=== PATIENT | male | born 1985 | race African-American/Black ===

== ENCOUNTER 2020-07-14 12:42 | Inpatient (IN) | payer OTHER, BC ==
[~2020-07-14] VITALS: Ht 172.7 cm; Wt 96.2 kg
[2020-07-14] MEDS ORDERED: IV NORMAL SALINE 1000ML BAG 1,000 ML IV ONE ×3 (13:00→14:45)
[2020-07-14 13:30] LABS: BASO % 1 % (0-3); EOS % 0 % (0-3); HEMATOCRIT 43.9 % (39.0-53.0); HEMOGLOBIN 15.2 g/dL (13.0-17.5); LYMPH # 1.6 x10^3/uL (1.0-4.8); LYMPH % 28 % (24-48); MEAN CORPUSCULAR HEMOGLOBIN 32 pg (25-35); MEAN CORPUSCULAR HGB CONC 35 g/dL (31-37); MEAN CORPUSCULAR VOLUME 91 fL (79-100); MONO # 0.5 x10^3/uL (0.0-1.1); MONO % 9 % (0-9); NEUT # 3.5 x10^3/uL (1.8-7.7); NEUT % 63 % (31-73); PLATELET COUNT 257 x10^3/uL (140-400); RED BLOOD COUNT 4.81 x10^6/uL (4.30-5.70); RED CELL DISTRIBUTION WIDTH 13.3 % (11.5-14.5); WHITE BLOOD COUNT 5.6 x10^3/uL (4.0-11.0)
[2020-07-14 13:39] LABS: CALCIUM 9.2 mg/dL (8.5-10.1); CREATININE 1.5 mg/dL (0.7-1.3); GFR 63.7; POTASSIUM 3.6 mmol/L (3.5-5.1)
[2020-07-14 13:42] LABS: BILIRUBIN,URINE SMALL (NEG); CLARITY,URINE CLEAR; NITRITE,URINE NEGATIVE (NEG); PH,URINE 5.5 (<5.0-8.0); PROTEIN,URINE 100 mg/dL (NEG-TRACE); UROBILINOGEN,URINE 0.2 mg/dL (0.2 mg/dL)
[2020-07-14 13:44] LABS: ALBUMIN 4.3 g/dL (3.4-5.0); ALBUMIN/GLOBULIN RATIO 0.9 (1.0-1.7); MAGNESIUM 2.3 mg/dL (1.8-2.4); TOTAL BILIRUBIN 0.6 mg/dL (0.2-1.0); TOTAL PROTEIN 9.3 g/dL (6.4-8.2)
[2020-07-14 13:46] LABS: AMPHETAMINE/METHAMPHETAMINE POS (NEG); BARBITURATES NEG (NEG); BENZODIAZEPINES NEG (NEG); CANNABINOIDS POS (NEG); COCAINE NEG (NEG); METHADONE NEG (NEG); OPIATES NEG (NEG); PHENCYCLIDINE NEG (NEG)
[2020-07-14 13:53] LABS: COLOR,URINE DK YELLOW
[2020-07-14 13:54] LABS: HYALINE CASTS, URINE FEW /HPF
[2020-07-14 13:55] LABS: BACTERIA,URINE 0 /HPF (0-FEW); RBC,URINE RARE /HPF (0-2); WBC,URINE RARE /HPF (0-4)
[2020-07-14 14:28] LABS: ACETAMIN < 2 mcg/ml (10-30); SALIC < 2.8 mg/dL (2.8-20.0)
--- NOTE | 2020-07-14 14:36 | PHYS DOC ---
Past Medical History Past Medical History: High Cholesterol, Other Additional Past Medical Histor: ADHD Past Surgical History: Other Additional Past Surgical Histo: poor historian Smoking Status: Unknown if ever smoked Alcohol Use: None Social History Narrative: poor historian General Adult EDM: Chief Complaint: DRUG ABUSE HPI: HPI: Patient is a 35 year old [f__sex] who presents with [] Review of Systems: Review of Systems: Constitutional: Denies fever or chills. [] Eyes: Denies change in visual acuity. [] HENT: Denies nasal congestion or sore throat. [] Respiratory: Denies cough or shortness of breath. [] Cardiovascular: Denies chest pain or edema. [] GI: Denies abdominal pain, nausea, vomiting, bloody stools or diarrhea. [] : Denies dysuria. [] Musculoskeletal: Denies back pain or joint pain. [] Integument: Denies rash. [] Neurologic: Denies headache, focal weakness or sensory changes. [] Endocrine: Denies polyuria or polydipsia. [] Lymphatic: Denies swollen glands. [] Psychiatric: Denies depression or anxiety. [] Heart Score: Risk Factors: Risk Factors: DM, Current or recent (<one month) smoker, HTN, HLP, family history of CAD, obesity. Risk Scores: Score 0 - 3: 2.5% MACE over next 6 weeks - Discharge Home Score 4 - 6: 20.3% MACE over next 6 weeks - Admit for Clinical Observation Score 7 - 10: 72.7% MACE over next 6 weeks - Early Invasive Strategies Current Medications: Current Medications Medications (Trade) Dose Ordered Sig/Leah Start Time Stop Time Status Last Admin Dose Admin Lorazepam (Ativan Inj) 2 mg 1X ONCE 07/14/20 13:00 07/14/20 13:15 DC 07/14/20 13:45 2 MG Sodium Chloride 1,000 ml @ 1,000 mls/hr 1X ONCE 07/14/20 14:30 07/14/20 15:29 UNV Allergies: Allergies: Allergies Coded Allergies Type Severity Reaction Last Updated Verified Unable to Assess 07/14/20 No Physical Exam: PE: Constitutional: Well developed, well nourished, no acute distress, non-toxic appearance. [] HENT: Normocephalic, atraumatic, bilateral external ears normal, oropharynx moist, no oral exudates, nose normal. [] Eyes: PERRLA, EOMI, conjunctiva normal, no discharge. [] Neck: Normal range of motion, no tenderness, supple, no stridor. [] Cardiovascular:Heart rate regular rhythm, no murmur [] Lungs & Thorax: Bilateral breath sounds clear to auscultation [] Abdomen: Bowel sounds normal, soft, no tenderness, no masses, no pulsatile masses. [] Skin: Warm, dry, no erythema, no rash. [] Back: No tenderness, no CVA tenderness. [] Extremities: No tenderness, no cyanosis, no clubbing, ROM intact, no edema. [] Neurologic: Alert and oriented X 3, normal motor function, normal sensory function, no focal deficits noted. [] Psychologic: Affect normal, judgement normal, mood normal. [] Current Patient Data: Labs: Laboratory Tests Test 07/14/20 13:20 White Blood Count 5.6 x10^3/uL (4.0-11.0) Red Blood Count 4.81 x10^6/uL (4.30-5.70) Hemoglobin 15.2 g/dL (13.0-17.5) Hematocrit 43.9 % (39.0-53.0) Mean Corpuscular Volume 91 fL (79-100) Mean Corpuscular Hemoglobin 32 pg (25-35) Mean Corpuscular Hemoglobin Concent 35 g/dL (31-37) Red Cell Distribution Width 13.3 % (11.5-14.5) Platelet Count 257 x10^3/uL (140-400) Neutrophils (%) (Auto) 63 % (31-73) Lymphocytes (%) (Auto) 28 % (24-48) Monocytes (%) (Auto) 9 % (0-9) Eosinophils (%) (Auto) 0 % (0-3) Basophils (%) (Auto) 1 % (0-3) Neutrophils # (Auto) 3.5 x10^3/uL (1.8-7.7) Lymphocytes # (Auto) 1.6 x10^3/uL (1.0-4.8) Monocytes # (Auto) 0.5 x10^3/uL (0.0-1.1) Eosinophils # (Auto) 0.0 x10^3/uL (0.0-0.7) Basophils # (Auto) 0.0 x10^3/uL (0.0-0.2) Prothrombin Time 13.0 SEC (11.7-14.0) Prothrombin Time INR 1.0 (0.8-1.1) Activated Partial Thromboplast Time 28 SEC (24-38) Urine Collection Type Unknown Urine Color Dk yellow Urine Clarity Clear Urine pH 5.5 (<5.0-8.0) Urine Specific [place] >=1.030 (1.000-1.030) Urine Protein 100 mg/dL (NEG-TRACE) Urine Glucose (UA) Negative mg/dL (NEG) Urine Ketones (Stick) 15 mg/dL (NEG) Urine Blood Trace (NEG) Urine Nitrite Negative (NEG) Urine Bilirubin Small (NEG) Urine Urobilinogen Dipstick 0.2 mg/dL (0.2 mg/dL) Urine Leukocyte Esterase Negative (NEG) Urine RBC Rare /HPF (0-2) Urine WBC Rare /HPF (0-4) Urine Transitional Epithelial Cells Occ /LPF Urine Bacteria 0 /HPF (0-FEW) Urine Hyaline Casts Few /HPF Urine Mucus Marked /LPF Sodium Level 140 mmol/L (136-145) Potassium Level 3.6 mmol/L (3.5-5.1) Chloride Level 100 mmol/L (98-107) Carbon Dioxide Level 24 mmol/L (21-32) Anion Gap 16 (6-14) H Blood Urea Nitrogen 16 mg/dL (8-26) Creatinine 1.5 mg/dL (0.7-1.3) H Estimated GFR (Cockcroft-Gault) 63.7 BUN/Creatinine Ratio 11 (6-20) Glucose Level 125 mg/dL (70-99) H Lactic Acid Level 5.1 mmol/L (0.4-2.0) *H Calcium Level 9.2 mg/dL (8.5-10.1) Magnesium Level 2.3 mg/dL (1.8-2.4) Total Bilirubin 0.6 mg/dL (0.2-1.0) Aspartate Amino Transferase (AST) 81 U/L (15-37) H Alanine Aminotransferase (ALT) 49 U/L (16-63) Alkaline Phosphatase 73 U/L (46-116) Ammonia 28 mcmol/L (11-34) Creatine Kinase 6207 U/L (39-308) H Creatine Kinase MB (Mass) 4.1 ng/mL (0.0-3.6) H Creatine Kinase MB Relative Index 0.1 % (0-4) Troponin I Quantitative < 0.017 ng/mL (0.000-0.055) Total Protein 9.3 g/dL (6.4-8.2) H Albumin 4.3 g/dL (3.4-5.0) Albumin/Globulin Ratio 0.9 (1.0-1.7) L Salicylates Level < 2.8 mg/dL (2.8-20.0) L Salicylate Last Dose Date Salicylate Last Dose Time Urine Opiates Screen Neg (NEG) Urine Methadone Screen Neg (NEG) Acetaminophen Level < 2 mcg/ml (10-30) L Acetaminophen Last Dose Date Acetaminophen Last Dose Time Urine Barbiturates Neg (NEG) Urine Phencyclidine Screen Neg (NEG) Urine Amphetamine/Methamphetamine Pos (NEG) Urine Benzodiazepines Screen Neg (NEG) Urine Cocaine Screen Neg (NEG) Urine Cannabinoids Screen Pos (NEG) Ethyl Alcohol Level < 10 mg/dL (0-10) Urine Ethyl Alcohol Neg (NEG) Laboratory Tests 07/14/20 13:20 Laboratory Tests 07/14/20 13:20 Vital Signs: Vital Signs Date Time Temp Pulse Resp B/P (MAP) Pulse Ox O2 Delivery O2 Flow Rate FiO2 07/14/20 12:45 96.0 104 22 140/76 (97) 96 Room Air 96.0 EKG: EKG: @1343 Sinus tachycardia at 109bpm, NO ST elevation, QRS 76ms, QT/QTc 332/449ms Radiology/Procedures: Radiology/Procedures: PER [facility] REVIEW FROM [facility] from 07/13/20: PROCEDURE: CT HEAD WO CONTRAST Exam: CT head INDICATION: Altered mental status TECHNIQUE: Sequential axial images through the head were obtained without the administration of IV contrast. Comparisons: None FINDINGS: No focal parenchymal lesion or hemorrhage is identified. There is no midline shift or sulcal effacement. No acute vascular territory infarction is identified. Pierson-white distinction is preserved. The ventricular system is within normal limits without compression hydrocephalus. The basal cisterns are well maintained. The visualized portions of the paranasal sinuses and mastoid air cells are well-pneumatized. No acute fractures. IMPRESSION: No acute intracranial abnormality. Exposure: One or more of the following in the visualized dose reduction techniques were utilized for this examination: 1. Automated exposure control 2. Adjustment of the MA and/or KV according to patient size Use of iterative of reconstructive technique Electronically signed by: Betina Knowles MD (07/13/2020 10:08 PM) [id number] PROCEDURE: PORTABLE CHEST 1V Exam: Chest one view INDICATION: Altered mental status TECHNIQUE: Frontal view of the chest Comparisons: None FINDINGS: The cardiomediastinal silhouette and pulmonary vessels are within normal limits. The lung and pleural spaces are clear. IMPRESSION: No acute cardiopulmonary process. Electronically signed by: Betina Knowles MD (07/13/2020 7:51 PM) [id number] Course & Med Decision Making: Course & Med Decision Making Pertinent Labs and Imaging studies reviewed. (See chart for details) [] Dragon Disclaimer: Dragon Disclaimer: This electronic medical record was generated, in whole or in part, using a voice recognition dictation system. Departure Departure Impression: Primary Impression: Altered mental status Qualified Codes: R41.82 - Altered mental status, unspecified Additional Impressions: Rhabdomyolysis Qualified Codes: M62.82 - Rhabdomyolysis Lactic acidosis Disposition: ADMITTED INPATIENT Admitting Physician: JERO Hwang) Condition: GUARDED Referrals: UNKNOWN PCP NAME (PCP) Justicifation of Admission Dx: Justifications for Admission: Justification of Admission Dx: Yes Altered Mental Status: Altered Mental Status KOKO DESHPANDE DO Jul 14, 2020 14:36
[2020-07-14] MEDS ORDERED: ONDANSETRON PF 4 MG/2 ML VIAL. IV PRN (14:45)
[2020-07-14] MEDS ORDERED: ZIPRASIDONE IM 20 MG VIAL. IM ONE (15:00)
--- NOTE | 2020-07-14 15:13 | EKG ---
[facility] [address] [place] [address] Test Date: 2020-07-14 Test Time: 13:43:03 Pat Name: CIRILO STEPHEN Department: Room: Gender: M Stock Pitcher: : 1985 Requested By: KOKO DESHPANDE Order Number: [id number] Reading MD: Measurements Intervals Henry Rate: 109 P: 55 ID: [id number] QRS: 80 QRSD: 76 T: 20 QT: 332 QTc: 449 Interpretive Statements SINUS TACHYCARDIA T ABNORMALITY IN ANTEROLATERAL LEADS ABNORMAL ECG RI6.02 No previous ECG available for comparison
[2020-07-14 20:02] VITALS: BP 136/65
[2020-07-14] MEDS ORDERED: HALOPERIDOL LACTATE 5 MG/ML VIAL. IVP PRN (20:15)
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
[2020-07-14 22:00] VITALS: BP 108/65
--- NOTE | 2020-07-14 22:08 | PDOC1 ---
History and Physical Date of Admission Date of Admission DATE: 07/14/20 TIME: 22:07 Identification/Chief Complaint Chief Complaint AMS Source Source: Chart review History of Present Illness History of Present Illness Patient presents for ED via EMS for AMS. Per ED personnel, patient reportedly left [facility] AM yesterday. At some point EMS was contacted and patient brought to the ED, where he began acting aggressively to staff. Unfortunately that is about all the information at this point, as patient is unable to provide further history due to his current condition. Past Medical History Past Medical History Unable to obtain due to clinical condition Past Surgical History Past Surgical History Unable to obtain due to clinical condition Family History Family History Unable to obtain due to clinical condition Social History Drugs: Other (Unable to obtain due to clinical condition) Current Problem List Problem List Problems Medical Problems: (1) Altered mental status Status: Acute (2) Lactic acidosis Status: Acute (3) Rhabdomyolysis Status: Acute Current Medications Current Medications Current Medications Lorazepam (Ativan Inj) 2 mg 1X ONCE IM Last administered on 07/14/20at 13:45; Start 07/14/20 at 13:00; Stop 07/14/20 at 13:15; Status DC Sodium Chloride 1,000 ml @ 1,000 mls/hr 1X ONCE IV Last administered on 07/14/20at 13:45; Start 07/14/20 at 13:00; Stop 07/14/20 at 13:59; Status DC Sodium Chloride 1,000 ml @ 1,000 mls/hr 1X ONCE IV Last administered on 07/14/20at 14:40; Start 07/14/20 at 14:30; Stop 07/14/20 at 15:29; Status DC Ondansetron HCl (Zofran) 4 mg PRN Q8HRS PRN IV NAUSEA/VOMITING; Start 07/14/20 at 14:45; Stop 07/15/20 at 14:44 Sodium Chloride 1,000 ml @ 125 mls/hr 1X ONCE IV Last administered on 07/14/20at 16:06; Start 07/14/20 at 14:45; Stop 07/14/20 at 22:44 Ziprasidone (Geodon Im) 20 mg 1X ONCE IM Last administered on 07/14/20at 16:06; Start 07/14/20 at 15:00; Stop 07/14/20 at 15:01; Status DC Lorazepam (Ativan Inj) 2 mg PRN Q4HRS PRN IVP ANXIETY / AGITATION Last administered on 07/14/20at 20:18; Start 07/14/20 at 20:15 Haloperidol Lactate (Haldol Inj) 10 mg PRN Q4HRS PRN IVP AGITATION; Start 07/14/20 at 20:15 Allergies Allergies: Coded Allergies: Unable to Assess (Unverified , 07/14/20) PT ALTERED ROS Review of System Unable to obtain due to clinical condition Physical Exam General: Other (Sedated in 4 point restraints) HEENT: Atraumatic, PERRLA Lungs: Clear to auscultation Heart: RRR, no jug vein distention Cardiovascular: S1, S2 Abdomen: Soft, No tenderness Extremities: No clubbing, No edema Skin: No rashes, No breakdown Neuro: Normal tone Psych/Mental Status: Other (sedated) Vitals Vitals Vital Signs Date Time Temp Pulse Resp B/P (MAP) Pulse Ox O2 Delivery O2 Flow Rate FiO2 07/14/20 20:02 98.2 20 22 136/65 (88) 95 Room Air 98.2 Labs Labs Laboratory Tests Test 07/14/20 13:20 07/14/20 17:09 White Blood Count 5.6 x10^3/uL (4.0-11.0) Red Blood Count 4.81 x10^6/uL (4.30-5.70) Hemoglobin 15.2 g/dL (13.0-17.5) Hematocrit 43.9 % (39.0-53.0) Mean Corpuscular Volume 91 fL (79-100) Mean Corpuscular Hemoglobin 32 pg (25-35) Mean Corpuscular Hemoglobin Concent 35 g/dL (31-37) Red Cell Distribution Width 13.3 % (11.5-14.5) Platelet Count 257 x10^3/uL (140-400) Neutrophils (%) (Auto) 63 % (31-73) Lymphocytes (%) (Auto) 28 % (24-48) Monocytes (%) (Auto) 9 % (0-9) Eosinophils (%) (Auto) 0 % (0-3) Basophils (%) (Auto) 1 % (0-3) Neutrophils # (Auto) 3.5 x10^3/uL (1.8-7.7) Lymphocytes # (Auto) 1.6 x10^3/uL (1.0-4.8) Monocytes # (Auto) 0.5 x10^3/uL (0.0-1.1) Eosinophils # (Auto) 0.0 x10^3/uL (0.0-0.7) Basophils # (Auto) 0.0 x10^3/uL (0.0-0.2) Prothrombin Time 13.0 SEC (11.7-14.0) Prothromb Time International Ratio 1.0 (0.8-1.1) Activated Partial Thromboplast Time 28 SEC (24-38) Urine Collection Type Unknown Urine Color Dk yellow Urine Clarity Clear Urine pH 5.5 (<5.0-8.0) Urine Specific [place] >=1.030 (1.000-1.030) Urine Protein 100 mg/dL (NEG-TRACE) Urine Glucose (UA) Negative mg/dL (NEG) Urine Ketones (Stick) 15 mg/dL (NEG) Urine Blood Trace (NEG) Urine Nitrite Negative (NEG) Urine Bilirubin Small (NEG) Urine Urobilinogen Dipstick 0.2 mg/dL (0.2 mg/dL) Urine Leukocyte Esterase Negative (NEG) Urine RBC Rare /HPF (0-2) Urine WBC Rare /HPF (0-4) Urine Transitional Epithelial Cells Occ /LPF Urine Bacteria 0 /HPF (0-FEW) Urine Hyaline Casts Few /HPF Urine Mucus Marked /LPF Sodium Level 140 mmol/L (136-145) Potassium Level 3.6 mmol/L (3.5-5.1) Chloride Level 100 mmol/L (98-107) Carbon Dioxide Level 24 mmol/L (21-32) Anion Gap 16 (6-14) Blood Urea Nitrogen 16 mg/dL (8-26) Creatinine 1.5 mg/dL (0.7-1.3) Estimated GFR (Cockcroft-Gault) 63.7 BUN/Creatinine Ratio 11 (6-20) Glucose Level 125 mg/dL (70-99) Lactic Acid Level 5.1 mmol/L (0.4-2.0) 1.1 mmol/L (0.4-2.0) Calcium Level 9.2 mg/dL (8.5-10.1) Magnesium Level 2.3 mg/dL (1.8-2.4) Total Bilirubin 0.6 mg/dL (0.2-1.0) Aspartate Amino Transf (AST/SGOT) 81 U/L (15-37) Alanine Aminotransferase (ALT/SGPT) 49 U/L (16-63) Alkaline Phosphatase 73 U/L (46-116) Ammonia 28 mcmol/L (11-34) Creatine Kinase 6207 U/L (39-308) Creatine Kinase MB (Mass) 4.1 ng/mL (0.0-3.6) Creatine Kinase MB Relative Index 0.1 % (0-4) Troponin I Quantitative < 0.017 ng/mL (0.000-0.055) Total Protein 9.3 g/dL (6.4-8.2) Albumin 4.3 g/dL (3.4-5.0) Albumin/Globulin Ratio 0.9 (1.0-1.7) Salicylates Level < 2.8 mg/dL (2.8-20.0) Salicylate Last Dose Date Salicylate Last Dose Time Urine Opiates Screen Neg (NEG) Urine Methadone Screen Neg (NEG) Acetaminophen Level < 2 mcg/ml (10-30) Acetaminophen Last Dose Date Acetaminophen Last Dose Time Urine Barbiturates Neg (NEG) Urine Phencyclidine Screen Neg (NEG) Urine Amphetamine/Methamphetamine Pos (NEG) Urine Benzodiazepines Screen Neg (NEG) Urine Cocaine Screen Neg (NEG) Urine Cannabinoids Screen Pos (NEG) Ethyl Alcohol Level < 10 mg/dL (0-10) Urine Ethyl Alcohol Neg (NEG) Laboratory Tests Test 07/14/20 13:20 07/14/20 17:09 White Blood Count 5.6 x10^3/uL (4.0-11.0) Red Blood Count 4.81 x10^6/uL (4.30-5.70) Hemoglobin 15.2 g/dL (13.0-17.5) Hematocrit 43.9 % (39.0-53.0) Mean Corpuscular Volume 91 fL (79-100) Mean Corpuscular Hemoglobin 32 pg (25-35) Mean Corpuscular Hemoglobin Concent 35 g/dL (31-37) Red Cell Distribution Width 13.3 % (11.5-14.5) Platelet Count 257 x10^3/uL (140-400) Neutrophils (%) (Auto) 63 % (31-73) Lymphocytes (%) (Auto) 28 % (24-48) Monocytes (%) (Auto) 9 % (0-9) Eosinophils (%) (Auto) 0 % (0-3) Basophils (%) (Auto) 1 % (0-3) Neutrophils # (Auto) 3.5 x10^3/uL (1.8-7.7) Lymphocytes # (Auto) 1.6 x10^3/uL (1.0-4.8) Monocytes # (Auto) 0.5 x10^3/uL (0.0-1.1) Eosinophils # (Auto) 0.0 x10^3/uL (0.0-0.7) Basophils # (Auto) 0.0 x10^3/uL (0.0-0.2) Prothrombin Time 13.0 SEC (11.7-14.0) Prothromb Time International Ratio 1.0 (0.8-1.1) Activated Partial Thromboplast Time 28 SEC (24-38) Urine Collection Type Unknown Urine Color Dk yellow Urine Clarity Clear Urine pH 5.5 (<5.0-8.0) Urine Specific [place] >=1.030 (1.000-1.030) Urine Protein 100 mg/dL (NEG-TRACE) Urine Glucose (UA) Negative mg/dL (NEG) Urine Ketones (Stick) 15 mg/dL (NEG) Urine Blood Trace (NEG) Urine Nitrite Negative (NEG) Urine Bilirubin Small (NEG) Urine Urobilinogen Dipstick 0.2 mg/dL (0.2 mg/dL) Urine Leukocyte Esterase Negative (NEG) Urine RBC Rare /HPF (0-2) Urine WBC Rare /HPF (0-4) Urine Transitional Epithelial Cells Occ /LPF Urine Bacteria 0 /HPF (0-FEW) Urine Hyaline Casts Few /HPF Urine Mucus Marked /LPF Sodium Level 140 mmol/L (136-145) Potassium Level 3.6 mmol/L (3.5-5.1) Chloride Level 100 mmol/L (98-107) Carbon Dioxide Level 24 mmol/L (21-32) Anion Gap 16 (6-14) Blood Urea Nitrogen 16 mg/dL (8-26) Creatinine 1.5 mg/dL (0.7-1.3) Estimated GFR (Cockcroft-Gault) 63.7 BUN/Creatinine Ratio 11 (6-20) Glucose Level 125 mg/dL (70-99) Lactic Acid Level 5.1 mmol/L (0.4-2.0) 1.1 mmol/L (0.4-2.0) Calcium Level 9.2 mg/dL (8.5-10.1) Magnesium Level 2.3 mg/dL (1.8-2.4) Total Bilirubin 0.6 mg/dL (0.2-1.0) Aspartate Amino Transf (AST/SGOT) 81 U/L (15-37) Alanine Aminotransferase (ALT/SGPT) 49 U/L (16-63) Alkaline Phosphatase 73 U/L (46-116) Ammonia 28 mcmol/L (11-34) Creatine Kinase 6207 U/L (39-308) Creatine Kinase MB (Mass) 4.1 ng/mL (0.0-3.6) Creatine Kinase MB Relative Index 0.1 % (0-4) Troponin I Quantitative < 0.017 ng/mL (0.000-0.055) Total Protein 9.3 g/dL (6.4-8.2) Albumin 4.3 g/dL (3.4-5.0) Albumin/Globulin Ratio 0.9 (1.0-1.7) Salicylates Level < 2.8 mg/dL (2.8-20.0) Salicylate Last Dose Date Salicylate Last Dose Time Urine Opiates Screen Neg (NEG) Urine Methadone Screen Neg (NEG) Acetaminophen Level < 2 mcg/ml (10-30) Acetaminophen Last Dose Date Acetaminophen Last Dose Time Urine Barbiturates Neg (NEG) Urine Phencyclidine Screen Neg (NEG) Urine Amphetamine/Methamphetamine Pos (NEG) Urine Benzodiazepines Screen Neg (NEG) Urine Cocaine Screen Neg (NEG) Urine Cannabinoids Screen Pos (NEG) Ethyl Alcohol Level < 10 mg/dL (0-10) Urine Ethyl Alcohol Neg (NEG) VTE Prophylaxis Ordered VTE Prophylaxis Devices: Yes VTE Pharmacological Prophylaxi: No Assessment/Plan Assessment/Plan AMS, Rhabdomyolysis, Lactic Acidosis Plan: Will give IV Normal Saline for hydration and rhabdomyolysis. UDS positive for amphetamine/methamphetamine. Patient has become aggressive on the medical floors. Haldol, Ativan prn aggressive behavior. Continue 4 point restraints with frequent reassessment for necessity. Suspect symptoms are due to acute drug intoxication. If no resolution in symptoms spontaneously, will consult Psychiatry. VTE prophylaxis. Full Code. FENG QUIROZ MD Jul 14, 2020 22:08
[2020-07-15] VITALS (8 sets, daily range): BP systolic 106–131; BP diastolic 55–82
[2020-07-15] MEDS: IV NORMAL SALINE 1000ML BAG 1,000 ML IV SCH ×2 (00:19→09:54)
[2020-07-15 05:15] LABS: BASO % 1 % (0-3); EOS # 0.1 x10^3/uL (0.0-0.7); EOS % 2 % (0-3); HEMATOCRIT 40.9 % (39.0-53.0); HEMOGLOBIN 13.7 g/dL (13.0-17.5); LYMPH # 1.5 x10^3/uL (1.0-4.8); LYMPH % 30 % (24-48); MEAN CORPUSCULAR HEMOGLOBIN 31 pg (25-35); MEAN CORPUSCULAR HGB CONC 34 g/dL (31-37); MEAN CORPUSCULAR VOLUME 92 fL (79-100); MONO # 0.4 x10^3/uL (0.0-1.1); MONO % 8 % (0-9); NEUT % 60 % (31-73); PLATELET COUNT 211 x10^3/uL (140-400); RED BLOOD COUNT 4.45 x10^6/uL (4.30-5.70); RED CELL DISTRIBUTION WIDTH 13.1 % (11.5-14.5); WHITE BLOOD COUNT 4.9 x10^3/uL (4.0-11.0)
[2020-07-15 05:51] LABS: CREATININE 1.1 mg/dL (0.7-1.3); GFR 91.1; POTASSIUM 3.6 mmol/L (3.5-5.1)
--- NOTE | 2020-07-15 06:24 | NUR ---
restraints were removed at this time. This RN discussed with the patient why the restraints were placed initially, patient states that he did not remember coming to the hospital or being combative when transferred to the room. This RN will continue to monitor the patient at this time.
--- NOTE | 2020-07-15 10:51 | NUR ---
TRISTAN following. Spoke with RN and reviewed chart. Pt came in through the ED last night. Pt combative and placed in restraints. Pt tested positive for METH. Pt on a regular diet and room air. Pt apparently left AMA from [facility] a few days ago. Referral to [facility] per METH use. TRISTAN following. Addendum: 07/15/20 at 1258 by PATRICE HUDSON Spoke with Rickie from [facility] who met with pt and pt's . Pt has a hx of depression in additional to substance abuse. Pt denies SI/HI per Rickie. Pt to follow up on-patient with a psychiatrist and pt's is calling to make an appointment. Pt declined resources r/t substance abuse treatment per Rickie. No further SW needs identified at this time.
--- NOTE | 2020-07-15 15:16 | DISCH ---
DISCHARGE INSTRUCTIONS Condition on Discharge Condition on Discharge: Stable Activity After Discharge Activity Instructions for Disc: Activity as tolerated Driving Instructions after Dis: Do not drive today Weight Bearing Status after Di: No restrictions Diet after Discharge Diet after Discharge: Regular Follow-Up Follow up with: PCP within 1 week of discharge Follow Up With: Please follow-up with a psychiatrist AZAR BEASLEY MD Jul 15, 2020 15:16
--- NOTE | 2020-07-15 15:50 | PDOC1 ---
History & Psych Evaluation Date of Service: DOS: DATE: 07/15/20 TIME: 15:40 Source: Source: Caregiver, Chart review, Patient Identification: Identification 35-year-old young gentleman admitted with altered mental status. Chief Complaint: Chief Complaint Altered mental status, substance use, depression History of Present Illness: HPI: He is a 35-year-old gentleman who was brought in by EMS with altered mental status. He was reportedly first presented to the [facility] and left AMA. In ED he was aggressive towards the staff. Upon interview he appears cooperative and interactive. He is accompanied by his . He is interactive and fully alert and oriented. He states, he probably got disoriented because of combination of Adderall and CBD oil that he used. When discussed about the quantity, he states he he took 30 mg of Adderall and smoked CBD. He denies using any other illicit substance. States, he has history of mild depression that was manageable for him. However he was never been treated for depression or anxiety. Presently he denies depression, anxiety, psychosis, bipolar mood disorder. Denies auditory or visual hallucinations. No evidence of ayla or hypomania. Denies suicidal or homicidal thoughts. States he is absolutely fine and does not require any psychotropic medication. Previously he has been to [facility] for depression. Past Psychiatric History: Reportedly mild depression which was manageable with the help of counseling long time ago. Never been treated afterwards. History of substance use including marijuana and alcohol abuse. However quit 4 years ago. No history of suicidal ideation or suicidal attempt. No history of psychiatric hospital admission Past Medical History: Please see medical chart for details Family History: Denies family history of psychiatric illness or suicidality. Social History: Social History: He is have no children. Denies legal issues. He denies alcohol abuse. He denies other illicit substance use. Recently took Adderall and CBD. 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 Current Medications: Current Medications Current Medications Medications (Trade) Dose Ordered Sig/Leah Start Time Stop Time Status Last Admin Dose Admin Haloperidol Lactate (Haldol Inj) 10 mg PRN Q4HRS PRN 07/14/20 20:15 Lorazepam (Ativan Inj) 2 mg PRN Q4HRS PRN 07/14/20 20:15 07/14/20 20:18 2 MG Ondansetron HCl (Zofran) 4 mg PRN Q8HRS PRN 07/14/20 14:45 07/15/20 14:44 DC Sodium Chloride 1,000 ml @ 100 mls/hr Q10H 07/15/20 00:30 07/15/20 09:54 100 MLS/HR Ziprasidone (Geodon Im) 20 mg 1X ONCE 07/14/20 15:00 07/14/20 15:01 DC 07/14/20 16:06 20 MG Allergies: Allergies: Coded Allergies: Unable to Assess (Unverified , 07/14/20) PT ALTERED Mental Status Examination: Mental Status Examination Young pleasant gentleman, appears as a stated age Cooperative and interactive Fully alert and oriented Thought processes goal-directed and linear Denies suicidal or homicidal thoughts Denies auditory or visual hallucinations No abnormal perception noted Mood is pleasant Affect is euthymic Insight is good Judgment is good Impulse control is good Attention span and concentration good Recent and remote memory intact. ROS: 14 point review of system is otherwise negative except for mentioned above. Physical Exam: Refer to Physician's note. RECORDER GRAVITY PROSPECTING: No focal deficit MSK: No EPS, TDK, or abnormal involuntary movements Vitals: Vitals Vital Signs Date Time Temp Pulse Resp B/P (MAP) Pulse Ox O2 Delivery O2 Flow Rate FiO2 07/15/20 14:00 98.2 81 20 120/70 (87) 96 Room Air 98.2 Labs: Labs Laboratory Tests Test 07/14/20 13:20 07/14/20 17:09 07/15/20 04:30 White Blood Count 5.6 x10^3/uL (4.0-11.0) 4.9 x10^3/uL (4.0-11.0) Red Blood Count 4.81 x10^6/uL (4.30-5.70) 4.45 x10^6/uL (4.30-5.70) Hemoglobin 15.2 g/dL (13.0-17.5) 13.7 g/dL (13.0-17.5) Hematocrit 43.9 % (39.0-53.0) 40.9 % (39.0-53.0) Mean Corpuscular Volume 91 fL (79-100) 92 fL (79-100) Mean Corpuscular Hemoglobin 32 pg (25-35) 31 pg (25-35) Mean Corpuscular Hemoglobin Concent 35 g/dL (31-37) 34 g/dL (31-37) Red Cell Distribution Width 13.3 % (11.5-14.5) 13.1 % (11.5-14.5) Platelet Count 257 x10^3/uL (140-400) 211 x10^3/uL (140-400) Neutrophils (%) (Auto) 63 % (31-73) 60 % (31-73) Lymphocytes (%) (Auto) 28 % (24-48) 30 % (24-48) Monocytes (%) (Auto) 9 % (0-9) 8 % (0-9) Eosinophils (%) (Auto) 0 % (0-3) 2 % (0-3) Basophils (%) (Auto) 1 % (0-3) 1 % (0-3) Neutrophils # (Auto) 3.5 x10^3/uL (1.8-7.7) 3.0 x10^3/uL (1.8-7.7) Lymphocytes # (Auto) 1.6 x10^3/uL (1.0-4.8) 1.5 x10^3/uL (1.0-4.8) Monocytes # (Auto) 0.5 x10^3/uL (0.0-1.1) 0.4 x10^3/uL (0.0-1.1) Eosinophils # (Auto) 0.0 x10^3/uL (0.0-0.7) 0.1 x10^3/uL (0.0-0.7) Basophils # (Auto) 0.0 x10^3/uL (0.0-0.2) 0.0 x10^3/uL (0.0-0.2) Prothrombin Time 13.0 SEC (11.7-14.0) Prothromb Time International Ratio 1.0 (0.8-1.1) Activated Partial Thromboplast Time 28 SEC (24-38) Urine Collection Type Unknown Urine Color Dk yellow Urine Clarity Clear Urine pH 5.5 (<5.0-8.0) Urine Specific [place] >=1.030 (1.000-1.030) Urine Protein 100 mg/dL (NEG-TRACE) Urine Glucose (UA) Negative mg/dL (NEG) Urine Ketones (Stick) 15 mg/dL (NEG) Urine Blood Trace (NEG) Urine Nitrite Negative (NEG) Urine Bilirubin Small (NEG) Urine Urobilinogen Dipstick 0.2 mg/dL (0.2 mg/dL) Urine Leukocyte Esterase Negative (NEG) Urine RBC Rare /HPF (0-2) Urine WBC Rare /HPF (0-4) Urine Transitional Epithelial Cells Occ /LPF Urine Bacteria 0 /HPF (0-FEW) Urine Hyaline Casts Few /HPF Urine Mucus Marked /LPF Sodium Level 140 mmol/L (136-145) 143 mmol/L (136-145) Potassium Level 3.6 mmol/L (3.5-5.1) 3.6 mmol/L (3.5-5.1) Chloride Level 100 mmol/L (98-107) 108 mmol/L (98-107) Carbon Dioxide Level 24 mmol/L (21-32) 26 mmol/L (21-32) Anion Gap 16 (6-14) 9 (6-14) Blood Urea Nitrogen 16 mg/dL (8-26) 13 mg/dL (8-26) Creatinine 1.5 mg/dL (0.7-1.3) 1.1 mg/dL (0.7-1.3) Estimated GFR (Cockcroft-Gault) 63.7 91.1 BUN/Creatinine Ratio 11 (6-20) Glucose Level 125 mg/dL (70-99) 79 mg/dL (70-99) Lactic Acid Level 5.1 mmol/L (0.4-2.0) 1.1 mmol/L (0.4-2.0) Calcium Level 9.2 mg/dL (8.5-10.1) 8.0 mg/dL (8.5-10.1) Magnesium Level 2.3 mg/dL (1.8-2.4) Total Bilirubin 0.6 mg/dL (0.2-1.0) Aspartate Amino Transf (AST/SGOT) 81 U/L (15-37) Alanine Aminotransferase (ALT/SGPT) 49 U/L (16-63) Alkaline Phosphatase 73 U/L (46-116) Ammonia 28 mcmol/L (11-34) Creatine Kinase 6207 U/L (39-308) 4733 U/L (39-308) Creatine Kinase MB (Mass) 4.1 ng/mL (0.0-3.6) Creatine Kinase MB Relative Index 0.1 % (0-4) Troponin I Quantitative < 0.017 ng/mL (0.000-0.055) Total Protein 9.3 g/dL (6.4-8.2) Albumin 4.3 g/dL (3.4-5.0) Albumin/Globulin Ratio 0.9 (1.0-1.7) Salicylates Level < 2.8 mg/dL (2.8-20.0) Salicylate Last Dose Date Salicylate Last Dose Time Urine Opiates Screen Neg (NEG) Urine Methadone Screen Neg (NEG) Acetaminophen Level < 2 mcg/ml (10-30) Acetaminophen Last Dose Date Acetaminophen Last Dose Time Urine Barbiturates Neg (NEG) Urine Phencyclidine Screen Neg (NEG) Urine Amphetamine/Methamphetamine Pos (NEG) Urine Benzodiazepines Screen Neg (NEG) Urine Cocaine Screen Neg (NEG) Urine Cannabinoids Screen Pos (NEG) Ethyl Alcohol Level < 10 mg/dL (0-10) Urine Ethyl Alcohol Neg (NEG) Laboratory Tests Test 07/14/20 17:09 07/15/20 04:30 Lactic Acid Level 1.1 mmol/L (0.4-2.0) White Blood Count 4.9 x10^3/uL (4.0-11.0) Red Blood Count 4.45 x10^6/uL (4.30-5.70) Hemoglobin 13.7 g/dL (13.0-17.5) Hematocrit 40.9 % (39.0-53.0) Mean Corpuscular Volume 92 fL (79-100) Mean Corpuscular Hemoglobin 31 pg (25-35) Mean Corpuscular Hemoglobin Concent 34 g/dL (31-37) Red Cell Distribution Width 13.1 % (11.5-14.5) Platelet Count 211 x10^3/uL (140-400) Neutrophils (%) (Auto) 60 % (31-73) Lymphocytes (%) (Auto) 30 % (24-48) Monocytes (%) (Auto) 8 % (0-9) Eosinophils (%) (Auto) 2 % (0-3) Basophils (%) (Auto) 1 % (0-3) Neutrophils # (Auto) 3.0 x10^3/uL (1.8-7.7) Lymphocytes # (Auto) 1.5 x10^3/uL (1.0-4.8) Monocytes # (Auto) 0.4 x10^3/uL (0.0-1.1) Eosinophils # (Auto) 0.1 x10^3/uL (0.0-0.7) Basophils # (Auto) 0.0 x10^3/uL (0.0-0.2) Sodium Level 143 mmol/L (136-145) Potassium Level 3.6 mmol/L (3.5-5.1) Chloride Level 108 mmol/L (98-107) Carbon Dioxide Level 26 mmol/L (21-32) Anion Gap 9 (6-14) Blood Urea Nitrogen 13 mg/dL (8-26) Creatinine 1.1 mg/dL (0.7-1.3) Estimated GFR (Cockcroft-Gault) 91.1 Glucose Level 79 mg/dL (70-99) Calcium Level 8.0 mg/dL (8.5-10.1) Creatine Kinase 4733 U/L (39-308) Diagnosis: Diagnosis: Acute delirium likely hyperactive, substance-induced resolved Unspecified depression, rule out major depressive disorder Alcohol use disorder in sustained remission Marijuana use disorder in sustained remission Assessment: Gentleman admitted with altered mental status and aggressive behavior. Apparently substance use is the major precipitating factor for behavioral disturbances and altered mental status including Adderall in combination with CBD oil. He categorically denied use of any other substance or psychedelic. Additionally, he denies overt depression or anxiety requiring treatment. Plan: Patient has declined for any treatment. Psychoeducation provided. Educated regarding the use of illicit substances and adverse drug effect on patient's physical and mental health. Supportive psychotherapy provided. Risks, benefits, alternatives of the treatment and no treatment are also discussed in detail. Thank you for involving inpatient care. Monitor closely for symptomatology. MARIA ESTHER CARRILLO MD Jul 15, 2020 15:50
--- NOTE | 2020-07-15 18:22 | NUR ---
Discharge Note: PT DISCHARGED HOME WITH SELF CARE. PT LEFT FACILITY VIA PRIVATE VEHICLE WITH AT 1710. PT STABLE AND ALERT UPON DISCHARGE. PT PIV REMOVED FROM R FA WITHOUT COMPLICATIONS, BANDAGE APPLIED. PT AND EDUCATED ABOUT DISCHARGE INSTRUCTIONS, DISCHARGE MEDICATIONS, FOLLOW-UP CARE/INSTRUCTIONS, NO CONCERNS VOICED AT THIS TIME. PT EDUCATED TO FOLLOW-UP WITH PRIMARY CARE PROVIDER AND PSYCHIATRIST OUTPATIENT. NO CONCERNS VOICED AT THIS TIME. PT LEFT WITH ALL PERSONAL BELONGINGS. LISA STEPHEN [address] Discharge instructions and discharge home medications reviewed with Patient and a copy given. All questions have been answered and understanding verbalized.
--- NOTE | 2020-07-16 19:47 | PDOC3 ---
[facility]-Discharge Summary Date of Admission: Date of Admission: Jul 14, 2020 Date of Discharge: Date of Discharge: Jul 15, 2020 Admission Diagnosis: Admitting Diagnosis: AMS, Rhabdomyolysis, Lactic Acidosis Discharge Diagnosis: Discharge Diagnosis: Acute delirium likely hyperactive, substance-induced resolved Unspecified depression, rule out major depressive disorder Alcohol use disorder in sustained remission Marijuana use disorder in sustained remission Consults: Consults: Psychiatry Hospital Course: Hospital Course: Patient presents for ED via EMS for AMS. Per ED personnel, patient reportedly left [facility] AMA yesterday. At some point EMS was contacted and p kaia brought to the ED, where he began acting aggressively to staff. Unfortunately that is about all the information at this point, as patient is unable to provide further history due to his current condition. patient was admitted for further management and observations. No suicidal intent or aggressive episodes throughout his hospital stay. He was evaluated by the PAT team and Psychiatry. Please see psychiatry note for details. Patient was determined to be safe for discharge. Rest of hospital course was uneventful. Disposition: Disposition/Orders: D/C to Home Activity: Activity: Resume previous activity Diet: Diet: Regular Medications: Home Meds No Active Prescriptions or Reported Meds No Active Prescriptions or Reported Meds Total Time: Total Time: Total time spent was 25 minutes in preparing scripts, discharge planning with SW and RN, and preparing this discharge summary. Justicifation of Admission Dx: Justifications for Admission: Justification of Admission Dx: Yes Altered Mental Status: Altered Mental Status AZAR BEASLEY MD Jul 16, 2020 19:47
== END 2020-07-15 17:10 | disposition home or self-care (01) | DRG 557 ==
LOC: ER 12:42 → ED HOLD 15:52 → 5 NORTH 15:53
PROVIDERS: ADMIT Family Medicine; ATTEND Family Medicine
DX: M62.82 Rhabdomyolysis (principal); G93.41 Metabolic encephalopathy; F10.231 Alcohol dependence with withdrawal delirium; E87.2 Acidosis; E78.00 Pure hypercholesterolemia, unspecified; F12.11 Cannabis abuse, in remission; F32.9 Major depressive disorder, single episode, unspecified; F91.9 Conduct disorder, unspecified; F90.9 Attention-deficit hyperactivity disorder, unspecified type; Z79.899 Other long term (current) drug therapy; Y90.0 Blood alcohol level of less than 20 mg/100 ml
CPT/HCPCS: 36415; 80048; 80053; 80307; 80329; 81001; 82140; 82550; 82553; 83605; 83735; 84484; 85025; 85610; 85730; 93005; 96360; 96361; 96372; G0480; J2060; J3486; J7030; 99285-25; G0378